=== PATIENT | female | born 1960 | race Caucasian/White ===

== ENCOUNTER 2022-09-30 13:31 | Inpatient (IN) ==
[2022-09-30 14:13] LABS: Basophils % 0.3 % (0.0-0.8); Eosinophils # 0.1 10*3/uL (0.0-0.87); Eosinophils % 0.4 % (0.00-10.9); Hematocrit 15.6 VOL% (35.7-47.0); Immature Granulocytes % 0.8 %; Immature Granulocytes Absolute 0.12 #; Lymphocytes % 20.1 % (21.3-54.2); Mean Corpuscular HGB Conc 28.2 GM/DL (32-36); Mean Corpuscular Volume 75.4 FL (87-102); Monocytes # 1.4 10*3/uL (0.11-0.8); Monocytes % 9.2 % (1.7-12.7); NRBC # 0.13 10*3/uL; Neutrophils % 69.2 % (38.7-73.9); Platelet Count 410 T/CUMM (130-400); Red Blood Count 2.07 MC/CUMM (3.8-5.5); Red Cell Distribution Width 17.1 % (9.3-17.3); White Blood Count 14.8 T/CUMM (4-12)
[2022-09-30 14:17] LABS: Hemoglobin 4.4 GM/DL (12.0-16.0)
[2022-09-30 14:19] LABS: Albumin 3.7 G/DL (3.4-5.0); Bilirubin,Total 0.8 MG/DL (0.20-1.00); Calcium 8.5 MG/DL (8.5-10.1); Osmolality,Calculated 264.9 MOS/KG (273-304); Potassium 4.6 MMOL/L (3.5-5.1); Total Protein 7.1 G/DL (6.4-8.2)
[2022-09-30] MEDS ORDERED: SODIUM CHLORIDE 0.9% 1,000 ML IV PRN (14:19)
[2022-09-30 14:27] LABS: INR 1.2; PT Patient Result 12.9 SECS (10.1-12.1); Partial Thromboplastin Time 25.1 SECS (23.7-32.9)
[2022-09-30] MEDS ORDERED: ONDANSETRON 4 MG/2 ML VIAL IV PRN (14:38)
[2022-09-30 14:45] LABS: Hypochromia 2+; Microcytosis 2+; Platelet Estimate Increased
[2022-09-30 14:46] LABS: Target Cells Slight
[2022-09-30 14:47] LABS: Ferritin 46.6 ng/mL (8-252)
[2022-09-30 14:50] LABS: Folate 11.36 NG/ML (5.38-24.0)
[2022-09-30] MEDS: ACETAMINOPHEN 325 MG TABLET PO PRN (20:41)
[2022-09-30] MEDS: PANTOPRAZOLE 40 MG VIAL IV SCH (20:41)
[2022-09-30] MEDS: MELATONIN 3 MG TABLET PO SCH (20:41)
[2022-09-30] MEDS: GABAPENTIN 300 MG CAPSULE PO SCH (20:41)
[2022-09-30] MEDS ORDERED: FUROSEMIDE 40 MG/4 ML VIAL IV ONE (22:52)
[2022-10-01] MEDS: traMADol 50 MG TABLET PO PRN ×3 (02:20→20:49)
[2022-10-01 02:49] LABS: Calcium 8.4 MG/DL (8.5-10.1); Osmolality,Calculated 267.4 MOS/KG (273-304); Potassium 4.1 MMOL/L (3.5-5.1); Thyroid Stimulating Hormone 3.1 uIU/ml (0.358-3.74)
[2022-10-01] MEDS: LEVOTHYROXINE 50 MCG TABLET PO SCH (06:04)
[2022-10-01 07:03] LABS: Basophils # 0.1 10*3/uL (0.0-0.2); Basophils % 0.5 % (0.0-0.8); Eosinophils # 0.1 10*3/uL (0.0-0.87); Eosinophils % 1.1 % (0.00-10.9); Hematocrit 24.7 VOL% (35.7-47.0); Immature Granulocytes % 0.6 %; Immature Granulocytes Absolute 0.08 #; Lymphocytes # 2.8 10*3/uL (1.4-4.0); Lymphocytes % 22.3 % (21.3-54.2); Mean Corpuscular HGB Conc 29.1 GM/DL (32-36); Mean Corpuscular Volume 81.5 FL (87-102); Mean Platelet Volume 9.9 FL (9.6-12.0); Monocytes # 1.3 10*3/uL (0.11-0.8); Monocytes % 10.2 % (1.7-12.7); NRBC # 0.12 10*3/uL; Neutrophils % 65.3 % (38.7-73.9); Platelet Count 356 T/CUMM (130-400); Red Cell Distribution Width 18.6 % (9.3-17.3); White Blood Count 12.7 T/CUMM (4-12)
[2022-10-01 07:16] LABS: Hemoglobin 7.2 GM/DL (12.0-16.0); Red Blood Count 3.03 MC/CUMM (3.8-5.5)
[2022-10-01] MEDS: TOPIRAMATE 25 MG TABLET PO SCH (08:46)
[2022-10-01] MEDS: GABAPENTIN 300 MG CAPSULE PO SCH ×2 (08:46→20:48)
[2022-10-01] MEDS: PANTOPRAZOLE 40 MG VIAL IV SCH ×2 (08:46→20:48)
[2022-10-01] MEDS: SIMVASTATIN 20 MG TABLET PO SCH (08:46)
[2022-10-01] MEDS: METOPROLOL SUCCINATE XL 25 MG TABLET PO SCH (08:46)
[2022-10-01] MEDS: ACETAMINOPHEN 325 MG TABLET PO PRN (08:48)
[2022-10-01] MEDS ORDERED: SODIUM CHLORIDE 0.9% 1,000 ML IV PRN (10:26)
[2022-10-01] MEDS: MELATONIN 3 MG TABLET PO SCH (20:48)
[2022-10-02] MEDS: traMADol 50 MG TABLET PO PRN ×3 (03:49→19:12)
[2022-10-02] MEDS: LEVOTHYROXINE 50 MCG TABLET PO SCH (05:35)
[2022-10-02 06:19] LABS: Basophils # 0.1 10*3/uL (0.0-0.2); Basophils % 0.6 % (0.0-0.8); Eosinophils # 0.4 10*3/uL (0.0-0.87); Eosinophils % 4.2 % (0.00-10.9); Hematocrit 26.1 VOL% (35.7-47.0); Hemoglobin 7.9 GM/DL (12.0-16.0); Immature Granulocytes % 0.5 %; Immature Granulocytes Absolute 0.05 #; Lymphocytes # 2.1 10*3/uL (1.4-4.0); Lymphocytes % 20.2 % (21.3-54.2); Mean Corpuscular HGB Conc 30.3 GM/DL (32-36); Mean Corpuscular Volume 81.8 FL (87-102); Mean Platelet Volume 10.6 FL (9.6-12.0); Monocytes % 9.9 % (1.7-12.7); Neutrophils % 64.6 % (38.7-73.9); Platelet Count 349 T/CUMM (130-400); Red Blood Count 3.19 MC/CUMM (3.8-5.5); Red Cell Distribution Width 18.1 % (9.3-17.3); White Blood Count 10.3 T/CUMM (4-12)
[2022-10-02 06:38] LABS: Calcium 8.8 MG/DL (8.5-10.1); Osmolality,Calculated 275.7 MOS/KG (273-304); Potassium 3.8 MMOL/L (3.5-5.1)
[2022-10-02] MEDS ORDERED: LACTATED RINGERS 1,000 ML IV SCH (08:00)
[2022-10-02] MEDS: GABAPENTIN 300 MG CAPSULE PO SCH ×2 (10:41→20:31)
[2022-10-02] MEDS: TOPIRAMATE 25 MG TABLET PO SCH (10:41)
[2022-10-02] MEDS: METOPROLOL SUCCINATE XL 25 MG TABLET PO SCH (10:41)
[2022-10-02] MEDS: SIMVASTATIN 20 MG TABLET PO SCH (10:42)
[2022-10-02] MEDS: PANTOPRAZOLE 40 MG VIAL IV SCH ×2 (10:47→20:33)
[2022-10-02] MEDS ORDERED: propofoL 200 MG/20 ML VIAL IV ONE (13:47)
[2022-10-02] MEDS ORDERED: LIDOCAINE 2% 5 ML VIAL ONE (13:47)
[2022-10-02] MEDS ORDERED: PHENYLEPHRINE 1 MG/10 ML SYRINGE IV ONE (13:56)
[2022-10-02] MEDS ORDERED: MAGNESIUM HYDROXIDE SUSP 30 ML UDCUP PO ONE (14:30)
[2022-10-02 16:33] LABS: Hematocrit 26.2 VOL% (35.7-47.0); Hemoglobin 7.7 GM/DL (12.0-16.0)
[2022-10-02] MEDS: BISACODYL 5 MG TABLET PO SCH (17:56)
[2022-10-02] MEDS ORDERED: POLYETHYLENE GLYCOL POWDER 255 GM BOTTLE PO ONE (18:00)
[2022-10-02] MEDS: MELATONIN 3 MG TABLET PO SCH (20:31)
[2022-10-03] MEDS: BISACODYL 5 MG TABLET PO SCH ×2 (01:15→11:48)
[2022-10-03 05:07] LABS: Basophils % 0.4 % (0.0-0.8); Eosinophils # 0.6 10*3/uL (0.0-0.87); Eosinophils % 6.4 % (0.00-10.9); Hematocrit 25.3 VOL% (35.7-47.0); Hemoglobin 7.2 GM/DL (12.0-16.0); Immature Granulocytes % 0.3 %; Immature Granulocytes Absolute 0.03 #; Lymphocytes # 2.4 10*3/uL (1.4-4.0); Lymphocytes % 25.1 % (21.3-54.2); Mean Corpuscular HGB Conc 28.5 GM/DL (32-36); Mean Corpuscular Volume 82.7 FL (87-102); Monocytes # 1.1 10*3/uL (0.11-0.8); NRBC # 0.06 10*3/uL; Neutrophils % 56.8 % (38.7-73.9); Platelet Count 359 T/CUMM (130-400); Red Blood Count 3.06 MC/CUMM (3.8-5.5); Red Cell Distribution Width 18.6 % (9.3-17.3); White Blood Count 9.5 T/CUMM (4-12)
[2022-10-03 05:28] LABS: Hypochromia 1+; Microcytosis 1+; Ovalocytes Slight; Platelet Estimate Normal; Polychromasia Slight
[2022-10-03 05:37] LABS: Calcium 8.4 MG/DL (8.5-10.1); Osmolality,Calculated 270.8 MOS/KG (273-304); Potassium 3.8 MMOL/L (3.5-5.1)
[2022-10-03] MEDS: LEVOTHYROXINE 50 MCG TABLET PO SCH (05:50)
[2022-10-03] MEDS: ACETAMINOPHEN 325 MG TABLET PO PRN (06:23)
[2022-10-03] MEDS ORDERED: SODIUM CHLORIDE 0.9% 1,000 ML IV PRN (07:15)
[2022-10-03] MEDS: LACTATED RINGERS 1,000 ML IV SCH (07:39)
[2022-10-03] MEDS: PANTOPRAZOLE 40 MG VIAL IV SCH ×2 (09:00→20:54)
[2022-10-03] MEDS: GABAPENTIN 300 MG CAPSULE PO SCH ×3 (11:48→20:53)
[2022-10-03] MEDS: TOPIRAMATE 25 MG TABLET PO SCH (11:49)
[2022-10-03] MEDS: METOPROLOL SUCCINATE XL 25 MG TABLET PO SCH (11:49)
[2022-10-03] MEDS: SIMVASTATIN 20 MG TABLET PO SCH (11:50)
[2022-10-03] MEDS ORDERED: propofoL 200 MG/20 ML VIAL IV ONE ×2 (13:50→14:09)
[2022-10-03] MEDS ORDERED: LIDOCAINE 2% 5 ML VIAL ONE (13:50)
[2022-10-03] MEDS ORDERED: PHENYLEPHRINE 1 MG/10 ML SYRINGE IV ONE (14:04)
[2022-10-03] MEDS: traMADol 50 MG TABLET PO PRN (16:02)
[2022-10-03] MEDS: MELATONIN 3 MG TABLET PO SCH (20:53)
[2022-10-04 05:03] LABS: Basophils # 0.1 10*3/uL (0.0-0.2); Basophils % 0.8 % (0.0-0.8); Eosinophils # 0.5 10*3/uL (0.0-0.87); Hematocrit 27.5 VOL% (35.7-47.0); Immature Granulocytes % 0.4 %; Immature Granulocytes Absolute 0.03 #; Lymphocytes # 1.7 10*3/uL (1.4-4.0); Lymphocytes % 22.1 % (21.3-54.2); Mean Corpuscular HGB Conc 29.1 GM/DL (32-36); Mean Corpuscular Volume 83.3 FL (87-102); Mean Platelet Volume 10.3 FL (9.6-12.0); Monocytes # 0.9 10*3/uL (0.11-0.8); Monocytes % 11.5 % (1.7-12.7); NRBC # 0.02 10*3/uL; Neutrophils % 59.2 % (38.7-73.9); Platelet Count 317 T/CUMM (130-400); White Blood Count 7.8 T/CUMM (4-12)
[2022-10-04 05:34] LABS: Calcium 8.5 MG/DL (8.5-10.1); Osmolality,Calculated 282.3 MOS/KG (273-304); Potassium 3.7 MMOL/L (3.5-5.1)
[2022-10-04] MEDS: LEVOTHYROXINE 50 MCG TABLET PO SCH (05:54)
[2022-10-04] MEDS: LACTATED RINGERS 1,000 ML IV SCH (10:19)
[2022-10-04] MEDS: TOPIRAMATE 25 MG TABLET PO SCH (10:20)
[2022-10-04] MEDS: GABAPENTIN 300 MG CAPSULE PO SCH (10:20)
[2022-10-04] MEDS: SIMVASTATIN 20 MG TABLET PO SCH (10:20)
[2022-10-04] MEDS: METOPROLOL SUCCINATE XL 25 MG TABLET PO SCH (10:20)
[2022-10-04] MEDS: PANTOPRAZOLE 40 MG VIAL IV SCH (10:21)
[2022-10-04 11:49] VITALS: BP 109/64
== END 2022-10-04 12:09 | disposition home or self-care (01) | DRG 377 ==
LOC: N.ED 13:31 → N.EDINP 14:36 → N.2E 15:55
PROVIDERS: ADMIT Hospitalist; ATTEND Hospitalist